=== PATIENT | female | born 1955 | race Caucasian/White ===

== ENCOUNTER 2016-06-24 22:42 | Emergency (ER) | payer MEDICAID, OTHER ==
[~2016-06-24] VITALS: Ht 162.6 cm; Wt 77.1 kg
--- NOTE | 2016-06-24 23:04 | NUR ---
Patient walked in to ER c/o dental abscess for approximately 24 hours. To room 4B.
[2016-06-24] MEDS ORDERED: TRAMADOL HCL 50 MG TABLET PO ONE (23:30)
[2016-06-24] MEDS ORDERED: CLINDAMYCIN HCL 150 MG CAPSULE PO ONE (23:30)
[2016-06-24] MEDS ORDERED: TRAMADOL HCL 50 MG TABLET ONE (23:45)
[2016-06-24] MEDS ORDERED: CLINDAMYCIN HCL 300 MG CAPSULE ONE (23:45)
--- NOTE | 2016-06-24 23:55 | NUR ---
Patient discharged to home in stable conditon. Written and verbal after care instructions given. Patient verbalizes understanding of instructions.
== END 2016-06-24 23:58 | disposition home or self-care (01) ==
LOC: ER 22:45
DX: K04.7 Periapical abscess without sinus (principal)
CPT/HCPCS: A4663